=== PATIENT | female | born 1950 | race Two or more races ===

== ENCOUNTER 2018-08-19 18:48 | Emergency (ER) | payer MEDICARE, MEDICAID ==
[~2018-08-19] VITALS: Ht 149.9 cm; Wt 49.2 kg
[2018-08-19] MEDS ORDERED: PROPARACAINE OPHTH 0.5%, 15ML ONE (19:32)
[2018-08-19] MEDS ORDERED: FLUORESCEIN OPHTHALMIC 1 MG STRIP ONE (19:32)
[2018-08-19] MEDS ORDERED: PROPARACAINE OPHTH 0.5%, 15ML EACHEYE ONE (20:00)
[2018-08-19] MEDS ORDERED: KETOROLAC 30 MG/1 ML IM ONE (20:00)
[2018-08-19] MEDS ORDERED: OXYcodone/APAP 5/325MG TABLET PO ONE (20:00)
[2018-08-19] MEDS ORDERED: FLUORESCEIN OPHTHALMIC 1 MG STRIP EACHEYE ONE (20:00)
[2018-08-19] MEDS ORDERED: OXYcodone/APAP 5/325MG TABLET ONE (20:24)
[2018-08-19] MEDS ORDERED: KETOROLAC 30 MG/1 ML ONE (20:24)
--- NOTE | 2018-08-19 20:26 | NUR ---
PT IN CT
--- NOTE | 2018-08-19 20:35 | NUR ---
PT BACK FROM CT, MEDICATED FOR PAIN
[2018-08-19] MEDS ORDERED: PREG25CA PO (20:40)
--- NOTE | 2018-08-19 21:17 | NUR ---
PT STATES PAIN IS BETTER BUT NOT GONE. RATES 7/10 FOR HEADACHE
[2018-08-19 21:38] VITALS: BP 164/84
== END 2018-08-19 21:40 | disposition home or self-care (01) ==
LOC: ED 21:33
DX: S05.02XA Injury of conjunctiva and corneal abrasion without foreign body, left eye, initial encounter (principal); S05.01XA Injury of conjunctiva and corneal abrasion without foreign body, right eye, initial encounter; H10.13 Acute atopic conjunctivitis, bilateral; G43.C0 Periodic headache syndromes in child or adult, not intractable; X58.XXXA Exposure to other specified factors, initial encounter; Y93.89 Activity, other specified; Y92.89 Other specified places as the place of occurrence of the external cause; Y99.8 Other external cause status
CPT/HCPCS: 70450; 96372; 99284; J1885

== ENCOUNTER 2018-11-25 15:44 | Inpatient (IN) | payer MEDICAID, MEDICARE ==
[~2018-11-25] VITALS: Ht 149.9 cm; Wt 45.7 kg
[~2018-11-25 15:44] MED LIST: PREG25CA PO
--- NOTE | 2018-11-25 15:53 | NUR ---
[facility] FOR AFTER GOING TO [facility] AND PT WAS SENT HERE FOR MEDICAL CLEARANCE. PT TRYING TO WITHDRAW FROM ETOH LAST DRINK THIS AM. DENIES SI/HI. PT PLACED ON MONITORS. PT RESTING ON GURNEY. SHAKINESS NOTED. REFUSING MEDICATIONS AT THIS TIME. PT AND FAMILY EDUCATED TO CALL IF PT CHANGES HER MIND/PT CONDITION CHANGES. PT AND FAMILY VERBALIZE UNDERSTANDING. WARM BLANKET PROVIDED.
[2018-11-25] MEDS ORDERED: THIAMINE 100MG TABLET ONE (16:00)
[2018-11-25] MEDS ORDERED: LORazepam 1MG TABLET ONE (16:00)
[2018-11-25] MEDS ORDERED: THIAMINE 100MG TABLET PO ONE (16:00)
[2018-11-25] MEDS ORDERED: LORazepam 1MG TABLET PO ONE (16:00)
[2018-11-25 16:14] LABS: BASOPHILS # (AUTO) 0.02 x10^3/uL (0-0.1); BASOPHILS % (AUTO) 0 % (0-1); EOSINOPHILS # (AUTO) 0.02 x10^3/uL (0-0.4); EOSINOPHILS % (AUTO) 0 % (1-7); LYMPHOCYTES # (AUTO) 1.17 x10^3/uL (1-3.4); LYMPHOCYTES % (AUTO) 19 % (22-44); MD NO; MEAN CORPUSCULAR HEMOGLOBIN 29.9 pg (27.0-34.8); MEAN CORPUSCULAR HGB CONC 32.6 g/dL (32.4-35.8); MEAN CORPUSCULAR VOLUME 91.6 fL (80-100); MEAN PLATELET VOLUME 8.7 fL (7.4-10.4); MONOCYTES # (AUTO) 0.45 x10^3/uL (0.2-0.8); MONOCYTES % (AUTO) 7 % (2-9); NEUTROPHILS # (AUTO) 4.47 x10^3/uL (1.8-6.8); NEUTROPHILS % (AUTO) 73 % (42-75); PLATELET COUNT 163 x10^3/uL (130-400); RED BLOOD COUNT 4.53 x10^6/uL (3.82-5.3); RED CELL DISTRIBUTION WIDTH 16.2 % (9.6-15.2)
[2018-11-25 16:26] LABS: CHLORIDE 103 mmol/L (98-107)
[2018-11-25 16:33] LABS: ALANINE AMINOTRANSFERASE 183 U/L (12-78); ALBUMIN 2.6 g/dL (3.4-5.0); ALKALINE PHOSPHATASE 181 U/L (45-117); ANION GAP 14 mmol/L (5-15); BILIRUBIN,TOTAL 0.6 mg/dL (0.2-1.0); CALCIUM 8.2 mg/dL (8.5-10.1); CREATININE 0.62 mg/dL (0.55-1.02); TOTAL PROTEIN 7.5 g/dL (6.4-8.2)
--- NOTE | 2018-11-25 16:57 | NUR ---
PT ATTEMPTING TO PROVIDE UA SAMPLE AT THIS TIME.
--- NOTE | 2018-11-25 17:11 | NUR ---
ERP DR. ENCINAS AT BEDSIDE.
[2018-11-25] MEDS ORDERED: POLYETHYLENE GLYCOL 17 GM PACKET PO PRN (18:00)
[2018-11-25] MEDS ORDERED: ONDANSETRON 2MG/ML, 2ML IVPush PRN (18:00)
[2018-11-25] MEDS ORDERED: SODIUM CHLORIDE 0.9% 1,000ML IVBOLUS ONE (18:00)
[2018-11-25] MEDS ORDERED: BISACODYL 10 MG SUPP PR PRN (18:00)
--- NOTE | 2018-11-25 18:02 | NUR ---
REPORT GIVEN TO CARI, RECEIVING RN. ALL QUESTIONS ANSWERED. AWAITING PT TRANSPORT.
[2018-11-25] MEDS: HEPARIN 5,000 UNITS/ML, 1ML SQ SCH (18:43)
[2018-11-25] MEDS: LACTATED RINGERS 1,000 ML IV SCH (18:44)
[2018-11-25 19:24] VITALS: BP 120/78
[2018-11-25] MEDS: LORazepam 2 MG/ML, 1ML IVPush PRN ×2 (19:59→23:56)
[2018-11-25] MEDS: CHLORDIAZEPOXIDE 10 MG CAPSULE PO PRN (19:59)
[2018-11-25] MEDS ORDERED: MULTIVITAMINS/MINERALS TABLET PO SCH (21:00)
[2018-11-25] MEDS ORDERED: THIAMINE 100MG TABLET PO SCH (21:00)
[2018-11-25 23:08] LABS: MICROSCOPIC AUTO
[2018-11-25 23:12] LABS: CULTURE INDICATED? YES
[2018-11-26 00:02] VITALS: BP 117/77
[2018-11-26] MEDS: HEPARIN 5,000 UNITS/ML, 1ML SQ SCH ×3 (02:00→18:06)
[2018-11-26] MEDS: LACTATED RINGERS 1,000 ML IV SCH ×2 (02:01→10:37)
[2018-11-26] MEDS: LORazepam 2 MG/ML, 1ML IVPush PRN ×4 (03:59→20:10)
[2018-11-26] MEDS: CHLORDIAZEPOXIDE 10 MG CAPSULE PO PRN (05:03)
[2018-11-26 05:44] LABS: BASOPHILS # (AUTO) 0.03 x10^3/uL (0-0.1); BASOPHILS % (AUTO) 1 % (0-1); EOSINOPHILS % (AUTO) 0 % (1-7); LYMPHOCYTES # (AUTO) 0.83 x10^3/uL (1-3.4); LYMPHOCYTES % (AUTO) 19 % (22-44); MD NO; MEAN CORPUSCULAR HEMOGLOBIN 30.1 pg (27.0-34.8); MEAN CORPUSCULAR HGB CONC 33.2 g/dL (32.4-35.8); MEAN CORPUSCULAR VOLUME 90.6 fL (80-100); MEAN PLATELET VOLUME 8.6 fL (7.4-10.4); MONOCYTES # (AUTO) 0.36 x10^3/uL (0.2-0.8); MONOCYTES % (AUTO) 8 % (2-9); NEUTROPHILS # (AUTO) 3.25 x10^3/uL (1.8-6.8); NEUTROPHILS % (AUTO) 73 % (42-75); PLATELET COUNT 112 x10^3/uL (130-400); RED BLOOD COUNT 3.65 x10^6/uL (3.82-5.3); RED CELL DISTRIBUTION WIDTH 15.4 % (9.6-15.2)
[2018-11-26 05:55] LABS: ALBUMIN 2.2 g/dL (3.4-5.0); ANION GAP 7 mmol/L (5-15); CALCIUM 7.7 mg/dL (8.5-10.1); CHLORIDE 107 mmol/L (98-107)
[2018-11-26 06:01] LABS: ALANINE AMINOTRANSFERASE 146 U/L (12-78); ALKALINE PHOSPHATASE 156 U/L (45-117); BILIRUBIN,TOTAL 0.9 mg/dL (0.2-1.0); CREATININE 0.47 mg/dL (0.55-1.02)
[2018-11-26 07:00] VITALS: BP 139/80
[2018-11-26] MEDS ORDERED: POTASSIUM CHLORIDE 40 MEQ in SODIUM CHLORIDE 0.9% 500 ML IV ONE (08:00)
[2018-11-26] MEDS ORDERED: MAGNESIUM SULFATE PMX 2GM/50ML 50 ML IV ONE (08:00)
[2018-11-26] MEDS ORDERED: KETOROLAC 30 MG/1 ML IVPush SCH (08:30)
[2018-11-26] MEDS ORDERED: SENNA/DOCUSATE TABLET PO SCH (09:00)
[2018-11-26] MEDS ORDERED: FOLIC ACID 1 MG TABLET PO SCH (09:00)
[2018-11-26] MEDS ORDERED: MAGNESIUM OXIDE 400 MG TABLET PO SCH (09:00)
[2018-11-26] MEDS: POTASSIUM CHLORIDE 20 MEQ, MAGNESIUM SULFATE 1 GM, FOLIC ACID 1 MG, THIAMINE 200 MG, MV... IV SCH (09:07)
[2018-11-26] MEDS: HALOPERIDOL 5 MG/ML IM PRN ×2 (11:56→22:17)
[2018-11-26 13:00] VITALS: BP 113/80
[2018-11-26] MEDS ORDERED: CYCL1DRO EACHEYE (16:01)
[2018-11-26] MEDS ORDERED: CITA20TA9 PO (16:01)
[2018-11-26] MEDS ORDERED: HYDR25TA11 PO (16:01)
[2018-11-26] MEDS ORDERED: METH5TAB6 PO (16:01)
[2018-11-26] MEDS ORDERED: MEGE20TA PO (16:01)
[2018-11-26 16:40] LABS: ANION GAP 8 mmol/L (5-15); CALCIUM 7.6 mg/dL (8.5-10.1); CHLORIDE 103 mmol/L (98-107)
[2018-11-26] MEDS: CEFTRIAXONE PMX 1GM/50ML 50 ML IV SCH (18:06)
[2018-11-26] MEDS: POTASSIUM PHOSPHATE 44 MEQ in SODIUM CHLORIDE 0.9% 500 ML IV SCH (18:06)
[2018-11-26] MEDS: PROPRANOLOL 10 MG TABLET PO SCH ×2 (18:07→22:16)
[2018-11-26 20:44] VITALS: BP 117/80
[2018-11-27 00:10] VITALS: BP 115/76
[2018-11-27] MEDS: LORazepam 2 MG/ML, 1ML IVPush PRN ×4 (00:48→22:23)
[2018-11-27] MEDS: HEPARIN 5,000 UNITS/ML, 1ML SQ SCH (01:11)
[2018-11-27] MEDS: KETOROLAC 30 MG/1 ML IVPush PRN ×2 (01:11→19:51)
[2018-11-27] MEDS: LACTATED RINGERS 1,000 ML IV SCH ×2 (02:10→23:48)
[2018-11-27 03:46] LABS: BASOPHILS # (AUTO) 0.01 x10^3/uL (0-0.1); BASOPHILS % (AUTO) 0 % (0-1); EOSINOPHILS # (AUTO) 0.02 x10^3/uL (0-0.4); EOSINOPHILS % (AUTO) 0 % (1-7); LYMPHOCYTES # (AUTO) 0.87 x10^3/uL (1-3.4); LYMPHOCYTES % (AUTO) 24 % (22-44); MD NO; MEAN CORPUSCULAR HEMOGLOBIN 30.2 pg (27.0-34.8); MEAN CORPUSCULAR HGB CONC 33.1 g/dL (32.4-35.8); MEAN CORPUSCULAR VOLUME 91.1 fL (80-100); MEAN PLATELET VOLUME 9.2 fL (7.4-10.4); MONOCYTES # (AUTO) 0.34 x10^3/uL (0.2-0.8); MONOCYTES % (AUTO) 9 % (2-9); NEUTROPHILS # (AUTO) 2.45 x10^3/uL (1.8-6.8); NEUTROPHILS % (AUTO) 66 % (42-75); PLATELET COUNT 119 x10^3/uL (130-400); RED BLOOD COUNT 3.94 x10^6/uL (3.82-5.3)
[2018-11-27 03:54] LABS: CHLORIDE 106 mmol/L (98-107)
[2018-11-27 04:01] LABS: ALANINE AMINOTRANSFERASE 175 U/L (12-78); ALBUMIN 2.3 g/dL (3.4-5.0); ALKALINE PHOSPHATASE 173 U/L (45-117); ANION GAP 6 mmol/L (5-15); CALCIUM 7.8 mg/dL (8.5-10.1); CREATININE 0.54 mg/dL (0.55-1.02); TOTAL PROTEIN 6.6 g/dL (6.4-8.2)
[2018-11-27] MEDS: POTASSIUM PHOSPHATE 44 MEQ in SODIUM CHLORIDE 0.9% 500 ML IV SCH (04:28)
[2018-11-27] MEDS: PROPRANOLOL 10 MG TABLET PO SCH ×3 (06:02→22:19)
[2018-11-27 06:43] VITALS: BP 123/80
[2018-11-27] MEDS: POTASSIUM CHLORIDE 20 MEQ, MAGNESIUM SULFATE 1 GM, FOLIC ACID 1 MG, THIAMINE 200 MG, MV... IV SCH (08:04)
[2018-11-27 12:43] VITALS: BP 117/83
[2018-11-27] MEDS: POTASSIUM CHLORIDE 40 MEQ in SODIUM CHLORIDE 0.9% 500 ML IV SCH ×2 (15:42→21:59)
[2018-11-27] MEDS: CEFTRIAXONE PMX 1GM/50ML 50 ML IV SCH (16:58)
[2018-11-27 18:40] VITALS: BP 129/100
[2018-11-27 19:17] VITALS: BP 149/84
[2018-11-27] MEDS ORDERED: POTASSIUM CHLORIDE 40 MEQ in SODIUM CHLORIDE 0.9% 500 ML IV ONE (22:00)
[2018-11-28 00:20] VITALS: BP 140/93
[2018-11-28] MEDS: HALOPERIDOL 5 MG/ML IM PRN (01:52)
[2018-11-28] MEDS: LORazepam 2 MG/ML, 1ML IVPush PRN ×2 (04:50→15:04)
[2018-11-28 05:30] LABS: CHLORIDE 111 mmol/L (98-107)
[2018-11-28 05:37] LABS: ALANINE AMINOTRANSFERASE 216 U/L (12-78); ALBUMIN 2.3 g/dL (3.4-5.0); ALKALINE PHOSPHATASE 193 U/L (45-117); ANION GAP 8 mmol/L (5-15); BILIRUBIN,TOTAL 1.7 mg/dL (0.2-1.0); CALCIUM 8.1 mg/dL (8.5-10.1); CREATININE 0.52 mg/dL (0.55-1.02); TOTAL PROTEIN 6.9 g/dL (6.4-8.2)
[2018-11-28] MEDS: PROPRANOLOL 10 MG TABLET PO SCH ×3 (05:52→21:05)
[2018-11-28] MEDS: LACTATED RINGERS 1,000 ML IV SCH ×3 (05:53→21:04)
[2018-11-28 07:31] VITALS: BP 112/92
[2018-11-28] MEDS: POTASSIUM CHLORIDE 20 MEQ, MAGNESIUM SULFATE 1 GM, FOLIC ACID 1 MG, THIAMINE 200 MG, MV... IV SCH (09:02)
[2018-11-28] MEDS: KETOROLAC 30 MG/1 ML IVPush PRN ×2 (11:51→23:18)
[2018-11-28 13:02] VITALS: BP 115/82
[2018-11-28] MEDS ORDERED: HALOPERIDOL 5 MG/ML IM PRN (16:30)
[2018-11-28] MEDS: CEFTRIAXONE PMX 1GM/50ML 50 ML IV SCH (17:46)
[2018-11-28] MEDS ORDERED: LORazepam 2 MG/ML, 1ML IVPush PRN (18:00)
[2018-11-28 18:57] VITALS: BP 116/83
[2018-11-29 01:30] VITALS: BP 119/86
[2018-11-29] MEDS: LACTATED RINGERS 1,000 ML IV SCH ×2 (05:40→21:14)
[2018-11-29] MEDS: KETOROLAC 30 MG/1 ML IVPush PRN (05:41)
[2018-11-29] MEDS: PROPRANOLOL 10 MG TABLET PO SCH ×3 (05:45→21:13)
[2018-11-29 05:50] LABS: CHLORIDE 107 mmol/L (98-107)
[2018-11-29 06:01] LABS: ALANINE AMINOTRANSFERASE 166 U/L (12-78); ALBUMIN 2.2 g/dL (3.4-5.0); ALKALINE PHOSPHATASE 169 U/L (45-117); ANION GAP 10 mmol/L (5-15); BILIRUBIN,TOTAL 1.3 mg/dL (0.2-1.0); CALCIUM 8.1 mg/dL (8.5-10.1); CREATININE 0.62 mg/dL (0.55-1.02); TOTAL PROTEIN 6.6 g/dL (6.4-8.2)
[2018-11-29 06:06] LABS: MEAN CORPUSCULAR HEMOGLOBIN 30.3 pg (27.0-34.8); MEAN PLATELET VOLUME 10.4 fL (7.4-10.4); PLATELET COUNT 120 x10^3/uL (130-400); RED BLOOD COUNT 4.22 x10^6/uL (3.82-5.3); RED CELL DISTRIBUTION WIDTH 16.2 % (9.6-15.2)
[2018-11-29 06:08] LABS: BASOPHILS # (AUTO) 0.04 x10^3/uL (0-0.1); BASOPHILS % (AUTO) 1 % (0-1); EOSINOPHILS # (AUTO) 0.05 x10^3/uL (0-0.4); EOSINOPHILS % (AUTO) 1 % (1-7); LYMPHOCYTES # (AUTO) 1.55 x10^3/uL (1-3.4); LYMPHOCYTES % (AUTO) 33 % (22-44); MD SCAN; MONOCYTES # (AUTO) 0.53 x10^3/uL (0.2-0.8); MONOCYTES % (AUTO) 11 % (2-9); NEUTROPHILS # (AUTO) 2.56 x10^3/uL (1.8-6.8); NEUTROPHILS % (AUTO) 54 % (42-75)
[2018-11-29 07:31] VITALS: BP 114/83
[2018-11-29] MEDS: POTASSIUM CHLORIDE 20 MEQ, MAGNESIUM SULFATE 1 GM, FOLIC ACID 1 MG, THIAMINE 200 MG, MV... IV SCH (08:54)
[2018-11-29] MEDS ORDERED: POLYETHYLENE GLYCOL 17 GM PACKET PO PRN (10:30)
[2018-11-29] MEDS: MULTIVITAMIN 1 TABLET PO SCH (10:41)
[2018-11-29] MEDS: MAGNESIUM OXIDE 400 MG TABLET PO SCH ×2 (10:41→21:13)
[2018-11-29] MEDS: FOLIC ACID 1 MG TABLET PO SCH (10:41)
[2018-11-29] MEDS: THIAMINE 100MG TABLET PO SCH (10:41)
[2018-11-29] MEDS: LIDODERM 5% PATCH TD SCH (10:42)
[2018-11-29 13:35] VITALS: BP 114/78
[2018-11-29] MEDS: CEFTRIAXONE PMX 1GM/50ML 50 ML IV SCH (17:49)
[2018-11-29 18:52] VITALS: BP 99/67
[2018-11-30] MEDS: OXYcodone IR 5MG TABLET PO PRN ×2 (00:27→08:50)
[2018-11-30 03:59] LABS: ALANINE AMINOTRANSFERASE 122 U/L (12-78); ANION GAP 8 mmol/L (5-15); CHLORIDE 108 mmol/L (98-107); CREATININE 0.52 mg/dL (0.55-1.02)
[2018-11-30 04:01] LABS: ALKALINE PHOSPHATASE 143 U/L (45-117); BILIRUBIN,TOTAL 0.8 mg/dL (0.2-1.0); TOTAL PROTEIN 5.6 g/dL (6.4-8.2)
[2018-11-30 04:50] VITALS: BP 90/60
[2018-11-30] MEDS: PROPRANOLOL 10 MG TABLET PO SCH ×2 (05:22→14:02)
[2018-11-30 07:54] VITALS: BP 102/70
[2018-11-30] MEDS: MULTIVITAMIN 1 TABLET PO SCH (08:50)
[2018-11-30] MEDS: MAGNESIUM OXIDE 400 MG TABLET PO SCH (08:50)
[2018-11-30] MEDS: FOLIC ACID 1 MG TABLET PO SCH (08:50)
[2018-11-30] MEDS: THIAMINE 100MG TABLET PO SCH (08:50)
[2018-11-30] MEDS: LIDODERM 5% PATCH TD SCH (08:53)
[2018-11-30] MEDS: LACTATED RINGERS 1,000 ML IV SCH (10:46)
[2018-11-30] MEDS ORDERED: THIA100T67 PO (11:27)
[2018-11-30] MEDS ORDERED: MULT1TAB60 PO (11:27)
[2018-11-30] MEDS ORDERED: LIDO700A20 TD (11:27)
[2018-11-30] MEDS ORDERED: MAGN400T50 PO (11:27)
[2018-11-30] MEDS ORDERED: FOLI-17 PO (11:27)
[2018-11-30] MEDS ORDERED: CEFD300C37 PO (11:27)
[2018-11-30 14:22] VITALS: BP 98/64
[2018-11-30] MEDS ORDERED: OXYC5TAB3 PO (14:49)
[2018-11-30 15:38] LABS: CLOSTRIDIUM DIFFICILE ANTIGEN NEGATIVE; CLOSTRIDIUM DIFFICILE TOXIN NEGATIVE (Negative)
[2018-11-30] MEDS: CEFTRIAXONE PMX 1GM/50ML 50 ML IV SCH (17:30)
== END 2018-11-30 18:20 | DRG 896 ==
LOC: ED 17:25 → EDIP 17:30 → 4WST 18:27
PROVIDERS: ADMIT Internal Medicine; ATTEND Internal Medicine
DX: F10.239 Alcohol dependence with withdrawal, unspecified (principal); K85.20 Alcohol induced acute pancreatitis without necrosis or infection; N39.0 Urinary tract infection, site not specified; E46 Unspecified protein-calorie malnutrition; K70.30 Alcoholic cirrhosis of liver without ascites; B96.1 Klebsiella pneumoniae [K. pneumoniae] as the cause of diseases classified elsewhere; E03.9 Hypothyroidism, unspecified; E83.39 Other disorders of phosphorus metabolism; E83.42 Hypomagnesemia; E05.90 Thyrotoxicosis, unspecified without thyrotoxic crisis or storm; E87.6 Hypokalemia; F10.229 Alcohol dependence with intoxication, unspecified; F32.9 Major depressive disorder, single episode, unspecified; R62.7 Adult failure to thrive; Z87.891 Personal history of nicotine dependence; Z90.710 Acquired absence of both cervix and uterus; Z68.20 Body mass index [BMI] 20.0-20.9, adult
CPT/HCPCS: 36415; 80048; 80053; 80074; 80307; 81001; 83690; 83735; 84100; 84443; 85025; 87077; 87086; 87186; 87324; 93005; 99285; G0378; J0696; J1644; J1885; J3411; J3475; J3480; J7070; J1630; J2060; J7030; J7040; J7120